=== PATIENT | male | born 1995 | race Caucasian/White ===

== ENCOUNTER 2019-04-20 11:24 | Emergency (ER) | payer OTHER ==
[2019-04-20 11:49] VITALS: BP 109/57
--- NOTE | 2019-04-20 12:05 | UC ---
Skin Complaint HPI - HPI Summary HPI Summary: HAD CHEST SURGERY TO REMOVE SOME SKIN 12/16/18. HAS ONE SMALL SPOT ON RIGHT CHEST THAT SCABBED OVER. IT HAS FALLEN OFF WITH MILD CLEAR/BLOODY DRAINAGE. COVERED WITH BAND AIDE AND A&D OINTMENT. - History of Current Complaint Chief Complaint: UCSkin Time Seen by Provider: 04/20/19 12:02 Stated Complaint: SKIN CONCERN Hx Obtained From: Patient Onset/Duration: Sudden Onset, Lasting Days Skin Exposure Onset/Duration: Days Ago Timing: Constant Onset Severity: Mild Current Severity: None Pain Intensity: 0 Related History: Trauma - surgery - Allergy/Home Medications Allergies/Adverse Reactions: Allergies Allergy/AdvReac Type Severity Reaction Status Date / Time No Known Allergies Allergy Verified 04/20/19 11:48 Home Medications: Home Medications Testosterone Injections 1 dose IM SEE INSTRUCTIONS 04/20/19 [History Confirmed 04/20/19] PMH/Surg Hx/FS Hx/Imm Hx Previously Healthy: Yes - Surgical History Surgical History: Yes Surgery Procedure, Year, and Place: CHEST SURGERY - Family History Known Family History: Positive: Hypertension - Social History Alcohol Use: Occasionally Substance Use Type: None Smoking Status (MU): Never Smoked Tobacco Review of Systems All Other Systems Reviewed And Are Negative: Yes Skin: Positive: Other - small open area on surgical incision Is Patient Immunocompromised?: No Physical Exam Appearance: Well-Appearing, No Pain Distress, Well-Nourished Vital Signs: Initial Vital Signs Temp 98.6 F 04/20/19 11:44 Pulse 60 04/20/19 11:44 Resp 15 04/20/19 11:44 BP 109/57 04/20/19 11:44 Pulse Ox 99 04/20/19 11:44 Vital Signs Reviewed: Yes Eye Exam: Normal ENT Exam: Normal Dental Exam: Normal Neck exam: Normal Respiratory Exam: Normal Cardiovascular Exam: Normal Abdominal Exam: Normal Bowel Sounds: Positive: Present Musculoskeletal Exam: Normal Neurological Exam: Normal Psychological: Positive: Normal Response To Family Skin: Positive: Other - 1/2 cm size scabbed area over surgical site on chest, not inflammed or infected. Course/Dx - Course Course Of Treatment: hx obtained, exam performed ,meds reviewed, educated on care of the site and no further treatement given. - Diagnoses Provider Diagnosis: Scab Discharge ED - Sign-Out/Discharge Documenting (check all that apply): Patient Departure All imaging exams completed and their final reports reviewed: No Studies - Discharge Plan Condition: Stable Disposition: HOME Patient Education Materials: Abrasion (ED) Referrals: No Primary Care Phys,NOPCP [Primary Care Provider] - Additional Instructions: 1. keep the area covered with the non stick dressing 2. clean with soap and water after workout and allow to air dry when you can. 3. Follow up with any increase in pain or redness or yellow or green drainage - Billing Disposition and Condition Condition: STABLE Disposition: Home - Attestation Statements Provider Attestation: I was available for consult. This patient was seen by the [facility]. The patient was not presented to , seen by or examined by -Eleazar Sanders MD
== END 2019-04-20 12:15 | disposition home or self-care (01) ==
LOC: EDSEX → UCCORT 11:24
DX: L76.82 Other postprocedural complications of skin and subcutaneous tissue (principal); Y83.8 Other surgical procedures as the cause of abnormal reaction of the patient, or of later complication, without mention of misadventure at the time of the procedure; Y92.9 Unspecified place or not applicable
CPT/HCPCS: 99201; G0463

== ENCOUNTER 2019-04-25 18:29 | Emergency (ER) | payer OTHER ==
[2019-04-25 18:44] VITALS: BP 119/75
--- NOTE | 2019-04-25 19:07 | UC ---
Skin Complaint HPI - HPI Summary HPI Summary: 24-year-old male who had "top surgery" on December 16, 2018 for excess skin due to weight loss. Along the incision line a few days ago he had some redness but it was rechecked and he was told it was not infected. He then had a papule that he popped and he wanted the area recheck. - History of Current Complaint Chief Complaint: UCSkin Time Seen by Provider: 04/25/19 19:07 Stated Complaint: SKIN COMPLAINT Hx Obtained From: Patient ?: No Onset/Duration: Gradual Onset Skin Exposure Onset/Duration: Days Ago Timing: Constant Onset Severity: Moderate Current Severity: Mild Pain Intensity: 0 Location: Other - Incision right upper chest Character: Raised Aggravating Factor(s): Nothing Alleviating Factor(s): Other - Patient popped the pimple and it has improved. Associated Signs & Symptoms: Positive: Negative - Allergy/Home Medications Allergies/Adverse Reactions: Allergies Allergy/AdvReac Type Severity Reaction Status Date / Time No Known Allergies Allergy Verified 04/25/19 18:44 PMH/Surg Hx/FS Hx/Imm Hx Previously Healthy: Yes - Surgical History Surgical History: Yes Surgery Procedure, Year, and Place: CHEST SURGERY - Family History Known Family History: Positive: Hypertension - Social History Alcohol Use: Occasionally Substance Use Type: None Smoking Status (MU): Never Smoked Tobacco Review of Systems All Other Systems Reviewed And Are Negative: Yes Skin: Positive: Other - Patient still has red incisional scars. He had a pimple in the midportion of the right incisional's are upper chest which he popped, it drained pus and today is a scab Physical Exam Triage Information Reviewed: Yes Appearance: Well-Appearing, No Pain Distress, Well-Nourished Vital Signs: Initial Vital Signs Temp 98.3 F 04/25/19 18:42 Pulse 77 04/25/19 18:42 Resp 15 04/25/19 18:42 BP 119/75 04/25/19 18:42 Pulse Ox 100 04/25/19 18:42 Vital Signs Reviewed: Yes Skin: Positive: Other - The right upper chest incision and left upper chest incisions appear to be healing. The area of concern is now just a small 2 mm red area that is no longer a papule has a small scab to it. Nontender on palpation, no cellulitis. Course/Dx - Course Course Of Treatment: Patient is comfortable here. He was advised not to squeeze or press the area. He can get rechecked if it appears to be developing a cellulitis or worsening symptoms especially if he runs fever or chills. If it develops a cellulitis he can apply warm moist compresses to the area 4-6 times a day and then seek further treatment. Patient is agreeable to this plan of action. - Diagnoses Provider Diagnosis: Problem involving surgical incision Discharge ED - Sign-Out/Discharge Documenting (check all that apply): Patient Departure All imaging exams completed and their final reports reviewed: No Studies - Discharge Plan Condition: Good Disposition: HOME Referrals: No Primary Care Phys,NOPCP [Primary Care Provider] - FABIENNE REDD [[employer], [employer], OTHER] - Additional Instructions: Observe for worsening symptoms. If the area becomes hot red tender apply warm moist compresses 4-6 times a day for 20 minutes each time and seek medical treatment. If you develop fever or chills and go to the emergency room. - Billing Disposition and Condition Condition: GOOD Disposition: Home
== END 2019-04-25 19:15 | disposition home or self-care (01) ==
LOC: EDSEX 18:29 → UCCORT 18:29
DX: R23.8 Other skin changes (principal); R23.4 Changes in skin texture; Z98.890 Other specified postprocedural states
CPT/HCPCS: 99211; G0463